=== PATIENT | female | born 1995 | race Caucasian/White ===

== ENCOUNTER 2017-02-12 09:03 | Emergency (ER) | payer OTHER ==
[~2017-02-12] VITALS: Ht 157.5 cm; Wt 68.0 kg
[~2017-02-12 09:03] MED LIST: ACET325T33 PO; IBUP-1542 PO; LORA10CA PO; ORPH100T PO; PROM5SYR2 PO
[2017-02-12 09:07] VITALS: Ht 157.5 cm; Wt 68.0 kg
[2017-02-12] MEDS ORDERED: KETOROLAC 30 MG INJ IM STA (09:16)
--- NOTE | 2017-02-12 09:25 | ERA ---
ER Documentation Chief Complaint Date/Time DATE: 02/12/17 TIME: 09:20 Chief Complaint right sided headache x 3 days and right facial pain x 3 days HPI 21-year-old female with a history of anxiety but otherwise healthy presents with a chief complaint of headache 3 days with mild right-sided neck pain radiating to the back of the head. Denies fever, worst headache of life, thunderclap headache, meningismus, temporal pain, eye pain, aura, change in vision, or new medications. Vaccination status up-to-date. No recent illness. No recent travel. ROS All systems reviewed and are negative except as per history of present illness. Medications Home Meds Active Scripts Ibuprofen* (Motrin*) 400 Mg Tab, 400 MG PO Q6, #30 TAB Prov:YOVANI NUGENT PA-C 02/12/17 Acetaminophen* (Tylenol*) 325 Mg Tablet, 650 MG PO Q4H Y for MILD PAIN LEVEL 1-3 , #30 TAB Prov:YOSSI MEYERS PA-C 04/14/16 Promethazine HCl/Codeine (Prometh-Codein 6.25-10 mg/5 ml) 5 Ml Syrup, 5 ML PO Q6 , #120 Prov:YOSSI MEYERS PA-C 04/14/16 Loratadine* (Claritin*) 10 Mg Capsule, 10 MG PO DAILY, #30 CAP Prov:YOSSI MEYERS PA-C 04/14/16 Orphenadrine Citrate (Norflex) 100 Mg Tablet.sa, 100 MG PO BID for 4 Days, TAB.SA Prov:TONY MCFADDEN PA-C 02/23/16 Ibuprofen* (Motrin*) 600 Mg Tab, 600 MG PO Q6, #30 TAB Prov:TONY MCFADDEN PA-C 02/23/16 Allergies Allergies: Coded Allergies: No Known Allergy (Verified , 02/12/17) PMhx/Soc Medical and Surgical Hx: pt denies Medical Hx, pt denies Surgical Hx History of Surgery: No Anesthesia Reaction: No Hx Neurological Disorder: No Hx Respiratory Disorders: No Hx Cardiac Disorders: No Hx Psychiatric Problems: No Hx Miscellaneous Medical Probl: No Hx Alcohol Use: No Hx Substance Use: No Hx Tobacco Use: No Smoking Status: Never smoker Physical Exam Vitals Vital Signs Date Time Temp Pulse Resp B/P Pulse Ox O2 Delivery O2 Flow Rate FiO2 02/12/17 09:07 98.2 78 18 118/75 100 Physical Exam Const: Overweight 21-year-old female. No acute distress. Head: Normocephalic, Atraumatic. Eyes: Non-injected; No discharge or foreign body. Ophthalmoscope exam unremarkable. EOMI and DONAVAN bilaterally. No nystagmus. Neur: Awake, alert and oriented x3. Neurovascularly intact bilaterally. Psych: Normal Mood and Affect. Ears: Normal External Ears, EACs clear, TM normal bilaterally without erythema. Nose: Normal external nose; no discharge, septal deviation, or sinus tenderness. Oral: No oral edema visualized. Mucous membranes moist and pink. Neck: No tenderness. No cervical lymphadenopathy, masses or goiter palpated. Trachea midline. Full range of motion. Supple ~ No meningismus. Negative kernings and brudnizkis signs. Pulm: Good air movement in upper and lower respiratory tracts. No dyspnea, stridor, tripoding or drooling. Clear to auscultation bilaterally. Cardio: Regular rate and rhythm; No murmurs, gallops or rubs auscultated. No JVD grossly observed. Radial and posterior tibial pulses 2+ bilaterally. No cyanosis. Capillary refill less than 2 seconds. Abd: Soft, non tender, non distended. No guarding, masses. Normal bowel sounds. No McBurney's point tenderness. MS: Normal motor strength, normal tone with gross examination. Skin: No petechiae or rashes. No ulcer, induration, jaundice. Good turgor. Back: No midline, flank or CVA tenderness. Ext: No edema or palpable cord. Normal movement of all extremities grossly observed. Results 24 hrs Current Medications Medications (Trade) Dose Ordered Sig/Rafia Route PRN Reason Start Time Stop Time Status Last Admin Dose Admin Metoclopramide HCl (Reglan) 10 mg ONCE ONCE IM 02/12/17 09:30 02/12/17 09:31 DC 02/12/17 09:28 Ketorolac Tromethamine (Toradol) 30 mg ONCE STAT IM 02/12/17 09:16 02/12/17 09:20 DC 02/12/17 09:29 Acetaminophen/ Hydrocodone Bitart ([place] (5/325)) 1 tab ONCE ONCE PO 8/2/17 09:30 02/12/17 09:31 DC 02/12/17 09:29 Procedures/MDM Patient was worked up and evaluated for headache as described in the history and physical examination. 10 mg Reglan IM, 5/325 [place] p.o., 30 mg Toradol IM with adequate relief of symptoms. There are no red flags to support brain CT evaluation. test was negative. The current most likely diagnosis is tension-type headache versus migraine. Patient will be discharged with ibuprofen 400 mg p.o every 4 hours as needed. At this time, I have little suspicion for subarachnoid hemorrhage or other intracranial bleeds, meningitis, temporal arteritis, glaucoma, hypertensive urgency/emergency, cerebral ischemia , arterial dissection, brain abscess/tumor, pain secondary to trauma, septicemia , or other intracranial bleeds. I have spoke with the patient regarding their condition and future management. They have verbally responded that they understand their status and treatment plan. The patients vitals are stable, and their current condition is appropriate for discharge. The patient will be given discharge instructions with return precautions. Departure Diagnosis: Primary Impression: Headache Qualified Code: G44.209 - Acute non intractable tension-type headache Condition: Stable Additional Instructions: Follow up with your PCP within the next 1-3 days for a more thorough evaluation and a possible referral to a specialist. Return the the emergency department immediately if symptoms worsen or change. If you have any questions regarding medications, ask your pharmacist or us before you leave. If any adverse reactions occur while taking your medications, discontinue the treatment and return to the emergency department immediately. Take your medications as directed, and complete the entire course of treatment. YOVANI NUGENT PA-C Feb 12, 2017 09:25 YOVANI NUGENT PA-C Feb 12, 2017 09:25
[2017-02-12] MEDS ORDERED: HYDROCODONE/APAP (5/325) TAB PO ONE (09:30)
[2017-02-12] MEDS ORDERED: METOCLOPRAMIDE 10 MG INJ IM ONE (09:30)
[2017-02-12] MEDS ORDERED: IBUP400T22 PO (09:37)
== END 2017-02-12 10:15 | disposition home or self-care (01) ==
LOC: FTE 09:03
DX: G44.209 Tension-type headache, unspecified, not intractable (principal)
CPT/HCPCS: J1885; J2765; Z7610; 96372

== ENCOUNTER 2017-06-18 17:30 | Emergency (ER) | payer OTHER ==
[~2017-06-18] VITALS: Wt 67.2 kg
[~2017-06-18 17:30] MED LIST changes: +IBUP400T22 PO
--- NOTE | 2017-06-18 18:19 | ERD ---
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 patient cleaned it immediately afterwards. Patient's denies any pain at this time. Patient had a puncture wound. Patient has complete tetanus vaccinations. Patient does not know any HIV status or hepatitis status of the patient she had. ROS All systems reviewed and are negative except as per history of present illness. Medications Home Meds Active Scripts Raltegravir Potassium* (Isentress*) 400 Mg Tablet, 400 MG PO BID for 28 Days, TAB Prov:SHASHANK MAYER OCCUPATIONAL SAFETY SPECIALIST 06/18/17 Emtricitabine-Tenofovir* (Truvada*) 200-300 Mg Tablet, 1 TAB PO DAILY for 28 Days, TAB Prov:SHASHANK MAYER OCCUPATIONAL SAFETY SPECIALIST 06/18/17 Ibuprofen* (Motrin*) 400 Mg Tab, 400 MG PO Q6, #30 TAB Prov:YOVANI NUGENT PA-C 02/12/17 Acetaminophen* (Tylenol*) 325 Mg Tablet, 650 MG PO Q4H Y for MILD PAIN LEVEL 1-3 , #30 TAB Prov:YOSSI MEYERS PA-C 04/14/16 Promethazine HCl/Codeine (Prometh-Codein 6.25-10 mg/5 ml) 5 Ml Syrup, 5 ML PO Q6 , #120 Prov:YOSSI MEYERS PA-C 04/14/16 Loratadine* (Claritin*) 10 Mg Capsule, 10 MG PO DAILY, #30 CAP Prov:YOSSI MEYERS PA-C 04/14/16 Orphenadrine Citrate (Norflex) 100 Mg Tablet.sa, 100 MG PO BID for 4 Days, TAB.SA Prov:TONY MCFADDEN PA-C 02/23/16 Ibuprofen* (Motrin*) 600 Mg Tab, 600 MG PO Q6, #30 TAB Prov:TONY MCFADDEN PA-C 02/23/16 Allergies Allergies: Coded Allergies: No Known Allergy (Verified , 02/12/17) PMhx/Soc Up-to-date tetanus vaccine. Medical and Surgical Hx: pt denies Medical Hx, pt denies Surgical Hx History of Surgery: No Anesthesia Reaction: No Hx Neurological Disorder: No Hx Respiratory Disorders: No Hx Cardiac Disorders: No Hx Psychiatric Problems: No Hx Miscellaneous Medical Probl: No Hx Alcohol Use: No Hx Substance Use: No Hx Tobacco Use: No FmHx Family History: No coronary disease, No diabetes, No other Physical Exam Vitals Vital Signs Date Time Temp Pulse Resp B/P Pulse Ox O2 Delivery O2 Flow Rate FiO2 06/18/17 17:33 98.6 82 20 111/68 98 Physical Exam GENERAL: The patient is well developed and appropriate for usual state of health, in no apparent distress. CHEST: Clear to auscultation bilaterally. There are no rales, wheezes or rhonchi. HEART: Regular rate and rhythm. No murmurs, clicks, rubs or gallops. No S3 or S4. ABDOMEN: Soft, nontender and nondistended. Good bowel sounds. No rebound or guarding. No gross peritonitis. No gross organomegaly or masses. No Villagran sign or McBurney point tenderness. BACK: No midline or flank tenderness. EXTREMITIES: Equal pulses bilaterally. There is no peripheral clubbing, cyanosis or edema. No focal swelling or erythema. Full range of motion. Grossly neurovascularly intact. NEURO: Alert and oriented. Cranial nerves 2-12 intact. Motor strength in all 4 extremities with 5/5 strength. Sensation grossly intact. Normal speech and gait. SKIN: Noted puncture wound in the index finger of the left hand. There is no apparent rash or petechia. The skin is warm and dry. HEMATOLOGIC AND LYMPHATIC: There is no evidence of excessive bruising or lymphedema. No gross cervical, axillary, or inguinal lymphadenopathy. Results 24 hrs Laboratory Tests Test 06/18/17 18:45 Total Bilirubin 0.2mg/dl Direct Bilirubin 0.00mg/dl Indirect Bilirubin 0.2mg/dl Aspartate Amino Transf (AST/SGOT) 18IU/L Alanine Aminotransferase (ALT/SGPT) 29IU/L Alkaline Phosphatase 96IU/L Total Protein 7.9g/dl Albumin 4.6g/dl Hepatitis B Surface Antigen NEGATIVE Hepatitis B Surface Antibody POSITIVE Hepatitis C Antibody NEGATIVE HIV (1&2) Antibody NEGATIVE Procedures/MDM Medical Decision making: Patient had needlestick exposure, unknown HIV status and hepatitis status of the patient. Patient will be given Truvada and raltegravir for post exposure prophylaxis. Patient was given copies of laboratory test results, was advised to inquire about hepatitis and HIV status of patient. Patient was advised to follow-up with primary care doctor for further evaluation. Patient was advised to return to emergency department for any worsening symptoms. Disposition: Home. Stable. Departure Diagnosis: Primary Impression: Needlestick injury accident Encounter type: initial encounter Qualified Code: W27.3XXA - Needlestick injury accident, initial encounter Condition: Stable Patient Instructions: Standard Precautions: [place] [employer] [place] SHASHANK MAYER NP Jun 18, 2017 18:19
[2017-06-18 19:20] LABS: ALBUMIN 4.6 g/dl (3.3-4.9); BILIRUBIN,INDIRECT 0.2 mg/dl (0-1.1); BILIRUBIN,TOTAL 0.2 mg/dl (0.2-1.3); TOTAL PROTEIN 7.9 g/dl (6.1-8.1)
[2017-06-18] MEDS ORDERED: EMTR1TAB11 PO (20:25)
[2017-06-18] MEDS ORDERED: RALT400T4 PO (20:25)
== END 2017-06-18 20:36 | disposition home or self-care (01) ==
LOC: FTE 17:30
DX: S61.231A Puncture wound without foreign body of left index finger without damage to nail, initial encounter (principal); W27.3XXA Contact with needle (sewing), initial encounter; Y92.9 Unspecified place or not applicable
CPT/HCPCS: 80076; 86703; 86706; 86803; 87340; Z7502; 99284

== ENCOUNTER 2019-03-11 09:24 | Emergency (ER) | payer OTHER ==
[~2019-03-11] VITALS: Ht 152.4 cm; Wt 68.9 kg
[~2019-03-11 09:24] MED LIST changes: +EMTR1TAB11 PO; +IBUP-1561 PO; -IBUP400T22 PO; +ISEN400 PO
[2019-03-11 09:44] VITALS: BP 110/55; PULSE 69; RESP 18; Ht 152.4 cm; Wt 68.9 kg
== END 2019-03-11 10:48 | disposition home or self-care (01) ==
LOC: FTE 09:24
DX: L65.9 Nonscarring hair loss, unspecified (principal)
CPT/HCPCS: 99282